=== PATIENT | female | born 1955 | race Caucasian/White ===

== ENCOUNTER 2020-01-25 17:42 | Emergency (ER) | payer OTHER ==
[~2020-01-25] VITALS: Ht 152.4 cm; Wt 62.7 kg
[~2020-01-25 17:42] MED LIST: ASPI81TA40 PO; METF-960 PO
[2020-01-25] MEDS ORDERED: SPIR25 PO (17:55)
[2020-01-25] MEDS ORDERED: SITA25 PO (17:55)
[2020-01-25] MEDS ORDERED: EMPA10TA PO (17:55)
[2020-01-25] MEDS ORDERED: ATOR40TA28 PO (17:55)
[2020-01-25] MEDS ORDERED: FURO40 PO (17:55)
[2020-01-25] MEDS ORDERED: ISOS30TA6 PO (17:55)
[2020-01-25 18:04] LABS: GLUCOSE,POINT OF CARE 197 MG/DL (70-110)
[2020-01-25 18:34] LABS: BASOPHILS % (AUTO) 0.3 % (0.0-2.0); LYMPHOCYTES # (AUTO) 1.6 K/uL (1.0-4.8); LYMPHOCYTES % (AUTO) 34.6 % (22.0-44.0); MEAN CORPUSCULAR HEMOGLOBIN 29.2 pg (26.0-34.0); MEAN CORPUSCULAR HGB CONC 32.5 G/dL (31.0-37.0); MEAN CORPUSCULAR VOLUME 90 fL (80-100); MONOCYTES # (AUTO) 0.3 K/uL (0.1-1.0); MONOCYTES % (AUTO) 7.3 % (2.0-9.0); NEUTROPHILS # (AUTO) 2.6 K/uL (1.8-7.7); NEUTROPHILS % (AUTO) 55.8 % (40.0-70.0); PLATELET COUNT (AUTO) 218 K/uL (150-450); RED BLOOD CELL COUNT(AUTO) 4.12 MIL/uL (4.00-5.20); RED CELL DISTRIBUTION WIDTH 15.8 % (11.5-14.5)
[2020-01-25 18:50] LABS: CALCIUM, TOTAL 8.8 mg/dL (8.8-10.5); POTASSIUM 4.1 mmol/L (3.5-5.1)
[2020-01-25 19:22] LABS: INFLUENZA TYPE A NEGATIVE FOR TYPE A (NEGATIVE); INFLUENZA TYPE B NEGATIVE FOR TYPE B (NEGATIVE)
[2020-01-25 19:35] VITALS: BP 121/80
== END 2020-01-25 19:50 | disposition home or self-care (01) ==
LOC: EMS 17:42
DX: J40 Bronchitis, not specified as acute or chronic (principal); E11.9 Type 2 diabetes mellitus without complications; E78.00 Pure hypercholesterolemia, unspecified; I10 Essential (primary) hypertension; F17.210 Nicotine dependence, cigarettes, uncomplicated; Z90.710 Acquired absence of both cervix and uterus; Z79.899 Other long term (current) drug therapy; Z79.82 Long term (current) use of aspirin; Z79.84 Long term (current) use of oral hypoglycemic drugs
CPT/HCPCS: 87804

== ENCOUNTER 2023-12-22 17:34 | Emergency (ER) | payer MEDICARE, OTHER ==
[~2023-12-22] VITALS: Ht 152.4 cm; Wt 61.8 kg
[~2023-12-22 17:34] MED LIST changes: +ATOR40TA28 PO; +EMPA10TA3 PO; +FURO40 PO; +ISOS30TA92 PO; +METF-1211 PO; -METF-960 PO; +SITA25 PO; +SPIR-37 PO
[2023-12-22 18:21] LABS: GLUCOMETER DEV NAME(LOC) ER.6; GLUCOSE,POINT OF CARE 105 MG/DL (70-110)
[2023-12-22 20:00] VITALS: BP 106/47; PULSE 82; RESP 16; TEMP 98.2
[2023-12-22 20:26] LABS: GLUCOMETER DEV NAME(LOC) ER.6; GLUCOSE,POINT OF CARE 128 MG/DL (70-110)
== END 2023-12-22 21:49 | disposition home or self-care (01) ==
LOC: EMS 17:39
DX: R05.9 Cough, unspecified (principal); Z53.21 Procedure and treatment not carried out due to patient leaving prior to being seen by health care provider
CPT/HCPCS: 71045; 82962; 99281